=== PATIENT | female | born 1965 | race Caucasian/White ===

== ENCOUNTER → 2020-12-08 | Day surgery (SDC) | payer OTHER ==
[~2020-12-08] VITALS: Ht 172.7 cm; Wt 79.6 kg
[~2020-12-08] MED LIST: COLESTIPOL HCL1 GM PO; OMEPRAZOLE40 MG PO; VITAMIN D32000 UNIT PO; VITAMIN E1000 UNI3 PO
[2020-12-08 10:35] LABS: HGB 13.8 g/dl (12.5-16.0); MCH 28.3 pg (25.0-31.0); MCHC 33.7 g/dL (32.0-36.0); MCV 84.2 fL (78.0-100.0); MPV 9.9 fL (6.0-9.5); RBC 4.87 M/uL (4.20-5.40); RDW 13.2 % (11.5-14.0)
[2020-12-08 11:25] LABS: ALBUMIN 3.7 g/dL (3.4-5.0); BILIRUBIN - TOTAL 0.4 mg/dL (0.2-1.0); BUN/CREAT RATIO (CALC) 9.5 RATIO; CREATININE 0.63 mg/dL (0.51-0.95); GLOBULIN (CALCULATION) 4.2 g/dL; POTASSIUM 3.9 mmol/L (3.5-5.1); TOTAL PROTEIN 7.9 g/dL (6.4-8.2); TOTAL T4 7.2 ug/dL (4.7-13.3)
== END | disposition home or self-care (01) ==
LOC: FAS 08:58
PROVIDERS: Surgery
DX: K22.2 Esophageal obstruction (principal); K31.9 Disease of stomach and duodenum, unspecified; K21.9 Gastro-esophageal reflux disease without esophagitis; J45.909 Unspecified asthma, uncomplicated; G47.30 Sleep apnea, unspecified; I10 Essential (primary) hypertension; Z88.0 Allergy status to penicillin; Z88.2 Allergy status to sulfonamides; Z91.040 Latex allergy status; Z79.899 Other long term (current) drug therapy
CPT/HCPCS: 36415; 80053; 84436; 84439; 84443; 84481; C1726; J2250; J2704; J7120